=== PATIENT | female | born 1990 | race African-American/Black ===

== ENCOUNTER 2020-04-19 20:37 | Emergency (ER) | payer BC ==
[~2020-04-19] VITALS: Ht 172.7 cm; Wt 82.0 kg
[2020-04-19] MEDS ORDERED: FAMOTIDINE 20MG/2ML VIAL IV SCH (20:45)
[2020-04-19] MEDS ORDERED: METHYLPREDNISOLONE SOD SUCC 125 MG/2 ML VIAL IV ONE (20:45)
[2020-04-19] MEDS ORDERED: EPINEPHRINE 1:1000 1 MG/ML AMP INJ ONE (20:45)
[2020-04-19] MEDS ORDERED: SODIUM CHLORIDE 0.9% 1,000 ML IV ONE ×2 (20:45→23:00)
[2020-04-19] MEDS ORDERED: DIPHENHYDRAMINE 50MG/ML VIAL IV ONE (20:45)
[2020-04-19] MEDS ORDERED: ALBUTEROL (0.083%) 2.5MG/3ML NEB HHN ONE (20:45)
[2020-04-19] MEDS ORDERED: EPIN0.3P3 IM (22:46)
[2020-04-19] MEDS ORDERED: P50 PO (22:47)
[2020-04-20 06:38] VITALS: BP 125/66
== END 2020-04-20 06:34 | disposition left against medical advice (07) ==
LOC: ER 20:37 → EDBEDREQ 23:22 → EDBEDREQTM 23:22 → ER 04-20 06:34 → CANBEDREQ 04-20 07:46
DX: R06.02 Shortness of breath (principal); J45.909 Unspecified asthma, uncomplicated
CPT/HCPCS: 94640; 96361; 96374; 96375; 99285; J1200; J2930; J3490; J7030; Z7610